=== PATIENT | female | born 1990 | race Caucasian/White ===

== ENCOUNTER 2017-06-12 17:55 | Observation (INO) | payer MEDICAID ==
[~2017-06-12] VITALS: Ht 152.4 cm; Wt 64.3 kg
[~2017-06-12 17:55] MED LIST: ALLERGY10 MG PO; BACTROBAN22 GM TP; IBUPROFEN IB200 M1 PO; IRON325 MG PO; NASONEX17 G1; PATANASE30.5 G1; PRENA1 CHEW TA1.4 M1 PO; PROAIR HFA8.5 GM AERO NEB; Q-PAP325 MG PO; TEARS NATURALE1 EACH OP; TYLENOL EXTRA500 M1 PO; [UNRECOGNIZED DRUG - OTHER] PO
[2017-06-12] MEDS ORDERED: FLONASE ALLERG9.9 ML (23:44)
[2017-06-12] MEDS ORDERED: ADVAIR 100-501 EACH PO (23:46)
[2017-06-12] MEDS ORDERED: TUMS200 MG PO (23:46)
[2017-06-14] MEDS ORDERED: PATANASE30.5 G1 (20:27)
[2017-06-14] MEDS ORDERED: FLONASE ALLERG9.9 ML (20:27)
== END 2017-06-13 09:50 ==
LOC: LDR 17:55
PROVIDERS: ADMIT Obstetrics & Gynecology
DX: O36.8130 Decreased fetal movements, third trimester, not applicable or unspecified (principal); Z3A.39 39 weeks gestation of pregnancy; Z79.899 Other long term (current) drug therapy
CPT/HCPCS: G0378

== ENCOUNTER 2017-06-14 16:18 | Inpatient (IN) | payer MEDICAID ==
[~2017-06-14] VITALS: Ht 153.7 cm; Wt 66.7 kg
[~2017-06-14 16:18] MED LIST changes: +ADVAIR 100-501 EACH PO; +FLONASE ALLERG9.9 ML; +TUMS200 MG PO
[2017-06-14] MEDS ORDERED: PATANASE30.5 G1 (20:27)
[2017-06-14] MEDS ORDERED: FLONASE ALLERG9.9 ML (20:27)
[2017-06-14 20:56] LABS: BASO % 0.1 % (0-2); EOS % 0.4 % (0-7); HCT-HEMATOCRIT 30.2 % (34.0-49.0); HGB-HEMOGLOBIN 9.6 gm/dl (12.0-15.5); IMMATURE GRANULOCYTES ABSOLUTE 0.02 tho/cmm (0-0.03); IMMATURE GRANULOCYTES PERCENT 0.2 % (0-0.3); LYMPH % 25.6 % (20-45); LYMPH ABSOLUTE COUNT 2.3 tho/cmm (0.8-4.5); MCH (MEAN CORPUSCULAR HGB) 27.4 pg (28.0-32.0); MCHC MEAN CORPUSCULAR HGB CONC 31.8 % (32.0-36.0); MONO % 11.5 % (0-12); NEUTROPHIL ABSOLUTE COUNT 5.6 tho/cmm (1.6-8.0); NEUTROPHIL-AUTOMATED 5.6 tho/cmm (1.6-8.0); NEUTROPHILS % 62.2 % (40-80); PLATELET COUNT 284 tho/cmm (150-450); RED BLOOD COUNT 3.51 mil/cmm (4.00-5.20); RED CELL DISTRIBUTION WIDTH 16.5 % (12.4-16.4)
[2017-06-16 07:14] LABS: BASO % 0.1 % (0-2); EOS % 0.5 % (0-7); EOSINOPHIL ABSOLUTE COUNT 0.1 tho/cmm (0.0-0.7); HCT-HEMATOCRIT 26.3 % (34.0-49.0); HGB-HEMOGLOBIN 8.4 gm/dl (12.0-15.5); IMMATURE GRANULOCYTES ABSOLUTE 0.02 tho/cmm (0-0.03); IMMATURE GRANULOCYTES PERCENT 0.1 % (0-0.3); LYMPH % 13.2 % (20-45); MCH (MEAN CORPUSCULAR HGB) 27.3 pg (28.0-32.0); MCHC MEAN CORPUSCULAR HGB CONC 31.9 % (32.0-36.0); MCV (MEAN CELL VOLUME) 85.4 fl (82.0-96.0); MONO % 6.3 % (0-12); NEUTROPHIL ABSOLUTE COUNT 12.1 tho/cmm (1.6-8.0); NEUTROPHIL-AUTOMATED 12.1 tho/cmm (1.6-8.0); NEUTROPHILS % 79.8 % (40-80); PLATELET COUNT 241 tho/cmm (150-450); RED BLOOD COUNT 3.08 mil/cmm (4.00-5.20); RED CELL DISTRIBUTION WIDTH 16.6 % (12.4-16.4)
[2017-06-16 07:16] LABS: WHITE BLOOD COUNT 15.1 tho/cmm (4.0-10.0)
[2017-06-17] MEDS ORDERED: IBUPROFEN800 M1 PO (14:39)
[2017-06-17] MEDS ORDERED: FEOSOL325 M1 PO (14:41)
[2017-06-17] MEDS ORDERED: COLACE100 M1 PO (14:41)
[2017-06-17] MEDS ORDERED: PERCOCET 5-3251 EACH PO (14:44)
== END 2017-06-17 18:20 | DRG 774 ==
LOC: LDR 16:18 → OBGF 19:59 → LDR 19:59 → OBGF 06-15 19:54
PROVIDERS: ADMIT Obstetrics & Gynecology
PROC: 10E0XZZ Delivery of Products of Conception, External Approach (ICD-10-PCS; principal; 2017-06-15)
PROC: 10907ZC Drainage of Amniotic Fluid, Therapeutic from Products of Conception, Via Natural or Artificial Opening (ICD-10-PCS; 2017-06-15)
PROC: 3E0P7GC Introduction of Other Therapeutic Substance into Female Reproductive, Via Natural or Artificial Opening (ICD-10-PCS; 2017-06-15)
PROC: 3E033VJ Introduction of Other Hormone into Peripheral Vein, Percutaneous Approach (ICD-10-PCS; 2017-06-15)
DX: O41.03X0 Oligohydramnios, third trimester, not applicable or unspecified (principal); O90.89 Other complications of the puerperium, not elsewhere classified; O99.344 Other mental disorders complicating childbirth; F32.9 Major depressive disorder, single episode, unspecified; O43.123 Velamentous insertion of umbilical cord, third trimester; Z3A.39 39 weeks gestation of pregnancy; Z37.0 Single live birth; O75.89 Other specified complications of labor and delivery; I49.1 Atrial premature depolarization; M79.604 Pain in right leg; O90.81 Anemia of the puerperium; D64.9 Anemia, unspecified
CPT/HCPCS: J2590; J3010